=== PATIENT | female | born 1980 | race Caucasian/White ===

== ENCOUNTER 2016-07-29 09:29 | Day surgery (SDC) | payer OTHER ==
[~2016-07-29] VITALS: Ht 149.9 cm; Wt 91.8 kg
[2016-07-29] VITALS (11 sets, daily range): BP systolic 110–132; BP diastolic 58–78; PULSE 78–112; RESP 12–19; O2SAT 95–100
[~2016-07-29 09:29] MED LIST: ACET-171 PO; BUPR150T8 PO; CeFAZolin Inj 2 GM in IV Premix 1 EACH IV ONE; LEVO1TAB8 PO
[2016-07-29] MEDS ORDERED: fentaNYL-PF 50 mCg/mL 2 mL Inj ONE (09:30)
[2016-07-29] MEDS ORDERED: Dexamethasone 4 mg/mL Inj ONE (09:30)
[2016-07-29] MEDS ORDERED: Propofol 10,000 mCg/mL 20 mL Inj ONE (09:30)
[2016-07-29] MEDS ORDERED: MetoCLOpramide 5 mg/mL 2 mL Inj ONE (09:30)
[2016-07-29] MEDS ORDERED: Ondansetron 2 mg/mL 2 mL Inj ONE (09:30)
[2016-07-29] MEDS ORDERED: Lidocaine PF 1% 30 mL Inj ONE (09:30)
[2016-07-29] MEDS: Lactated Ringer's 1,000 ML IV SCH ×2 (10:07→11:01)
[2016-07-29] MEDS ORDERED: Lactated Ringer's 1,000 ML IV SCH (10:46)
[2016-07-29] MEDS ORDERED: Lactated Ringer's 500 ML IV PRN (10:46)
--- NOTE | 2016-07-29 10:46 | PCM.HPANE ---
Patient Data Date of Service: Jul 29, 2016 Surgeon Admitting Provider: Attending Provider:Michael Giron DPM Primary Care Physician:Man Yusuf DO Other Provider:Navarro Elliott Anesthesia Reason for Visit Right Ankle Instability, Right Foot Pain Ht/WT & BMI Height (Feet): 4 Height (Inches): 11.00 Weight (Kilograms): 91.8 Body Mass Index 40.00 Allergies Coded Allergies: hydrocodone (Verified Allergy, Severe, hives, 07/27/16) Wasp (Verified Allergy, Unknown, UNKNOWN, 07/27/16) ibuprofen (Verified Adverse Reaction, Severe, bloody emesis, 07/27/16) Past Anesthesia History Anesthesia History: Denies:: Anesthesia Reactions, Fam Anesthesia Reaction, Fam Malignant Hypertherm, Malignant Hyperthermia Diabetes History Hx Diabetes?: No MRSA MRSA: No Medications Hypertension Medication: No Home Meds Incl Beta Michael: No Reported Medications Bupropion ER (Wellbutrin SR)150 Mg Tablet.er150 Mg PO BID Ref 0 07/27/16 Acetaminophen 500 Mg [id number] Mg PO Q6H PRN For Pain 07/27/16 Levonorgestrel/Ethinyl Estradiol (Aviane)1 Each Tablet1 Tablet PO DAILY #1 PACK 07/27/16 Discontinued Reported Medications Bupropion ER (Wellbutrin XL)150 Mg Tab.er.35t264 Mg PO DAILY Ref 0 07/27/16 Vits W-Ca,Fe,FA(<1Mg) ( Vitamins)1 Each Tablet1 Each PO DAILY 04/24/14 Discontinued Scripts Clindamycin 300 Mg [id number] Mg PO QID 7 Days Ref 0 Prov:Georges Chen 03/11/15 Docusate Sodium (Colace)100 Mg Aziwvha699 Mg PO BID PRN For Constipation #60 CAPSULE Ref 0 Prov:Jessica Hodges DO 04/25/14 Ascorbate Calcium (Vitamin C)500 Mg [id number] Mg PO DAILY #90 TABLET Prov:Jessica Hodges DO 04/25/14 Ferrous Sulfate 325 Mg Jofgew752 Mg PO DAILY #90 TABLET Ref 0 Prov:Jessica Hodges DO 04/25/14 [Oxycodone/Acetaminophen] (Percocet 5-325)1 TAB TABLET No Conflict Check1-2 Tab PO Q4-6H PRN For Pain #30 TABLET Prov:Jessica Hodges DO 04/25/14 [Lanolin] (Lansinoh Ointment)14 APPLIC/7 GM OINT No Conflict Check1 Applic TOPICAL DIRECTED PRN for breast care #1 TUBE Prov:Jessica Hodges DO 04/25/14 History History of ENT Problems?: No HEENT History: Denies:: Abnormal Airway Cataracts Difficult Intubation Dysphagia Glaucoma Hearing Problem Sinus Problem TMJ Denture Type: None Teeth Condition: Missing Teeth Hx of Heart Problems?: No Cardiovascular History: Denies:: Chest Pain Congestive Heart Failure Hypertension Hx of Respiratory Problem?: No Respiratory History: Denies:: Dyspnea Tuberculosis Use of C-PAP Machine Hx Neurologic Problems?: No Neurological History: Denies:: CVA Seizures TIA Hx of GI Problems?: Yes Gastrointestinal History: Denies:: Gastroesphageal Reflux Other GI Pertinent History: S/P INGUINAL (INCARCERATED) HERNIA RPR Hx of Problems?: No Female Hx: Denies:: Currently Skin History: Denies:: History Skin Disorders? Pressure Ulcers Hx Musculoskeletal Problems?: Yes Musculoskeletal History: Positive for:: Musculoskeletal Trauma (RT ANKLE INSTABILITY/PAIN=CURRENT PROBLEM) Hx of Psycho/Social Problems?: No Hx Surgeries?: Yes (Hernia, x 2) Hx Any Other Health Problems?: Yes Other History: Denies:: Cancer Endocrine Disease Hospitalization Thyroid Disease Hx Diabetes: No Hx Alcohol Use: YesHx Substance Use: Yes (HX MARIJUANA ABUSE - last use 3-4 months ago - smoking it) Smoking Status: Current Every Day Smoker Have You Smoked inLast 12 mo: Yes (TRYING TO QUIT-STARTED WELLBUTRIN)Approx How Many Cigarettes/day: 1 Stop/Bang Treated for Sleep Apnea?: No Do You Have a CPAP Machine?: No S-Snoring: Do You Snore Loudly: No T-Tired: feel tired, fatigued: No O-Obsered: Observed not breath: No P-Blood Pressure: treated: No B- Body Mass Index > 35 kg/m2: Yes A- Age over 50: No N- Neck Large Circumference: No G- Gender Male: No LELE Total Score: 1 LELE Risk Assessment: Low Risk, <3 Yes Risk Assessment Category Category 1A: Patient has history of documented sleep apnea, and HAS NOT received any narcotic, sedative or anesthesia administration during this stay. Category 1B: Patient has history of documented sleep apnea, and HAS received any narcotic , sedative or anesthesia administration during this stay Category 2: Patient has SUSPECTED Obstructive Sleep Apnea, and HAS received any narcotic , sedative or anesthesia administration during this stay. Category 3: Patient has SUSPECTED Obstructive Sleep Apnea and HAS NOT received narcotic, sedative or anesthesia administration during this stay. Category 4: Outpatient in Procedural Areas with known sleep apnea or who screen positive for High Risk via the STOP/BANG questionnaire. Exam Exam Vital Signs Vital Signs Date Time Temp Pulse Resp B/P Pulse Ox O2 Delivery O2 Flow Rate FiO2 07/29/16 10:09 36.2 78 16 127/73 97 Room Air General Appearance: Alert, Oriented X3, Cooperative, No Acute Distress HEENT/AIRWAY: MP 3, Neck Movement (from), Mouth Opening (3), Other (TMD<3) Lungs: Diminished Heart: Exam Unremarkable, Regular Rate/Rhythm, Normal S1, Normal S2, No Murmurs /Rubs/Gallops Meds/Labs/Diagnostics Admission Meds Current Medications Lactated Ringer's (Lr) 1,000 ml @ 120 mls/hr Q8H20M IV Last administered on t 10:07; Start 07/29/16 at 05:00; Stop 07/29/16 at 13:19 Plan Impression Patient chart reviewed, patient interviewed and anesthestic plan with risks, benefits, and alternatives discussed, and informed consent obtained. ASA Physical Status: ASA2 Mod Systemic Disease Anesthetic Plan: GA Bene/Risks/Altern/Consents: Yes HP Complete Prior to Induction: Yes Jordan Jaeger MD Jul 29, 2016 10:46
[2016-07-29] MEDS ORDERED: Phenylephrine 10,000 mCg/mL Inj IVPUSH PRN (10:50)
[2016-07-29] MEDS ORDERED: Ondansetron 2 mg/mL 2 mL Inj IVPUSH PRN (10:50)
[2016-07-29] MEDS ORDERED: MetoCLOpramide 5 mg/mL 2 mL Inj IVPUSH PRN (10:50)
[2016-07-29] MEDS ORDERED: EPHEDrine Sulfate 50 mg/mL Inj IVPUSH PRN (10:50)
[2016-07-29] MEDS ORDERED: HYDROmorphone 1 mg/mL Inj IVPUSH PRN (10:50)
[2016-07-29] MEDS ORDERED: Dexamethasone 4 mg/mL Inj IVPUSH PRN (10:50)
[2016-07-29] MEDS ORDERED: fentaNYL-PF 50 mCg/mL 2 mL Inj IVPUSH PRN (10:50)
[2016-07-29] MEDS ORDERED: Bupivacaine-MPF 0.5% W/EPI 30 mL Inj INJ ONE (11:40)
[2016-07-29] MEDS ORDERED: oxyCODONE-Acetamin 5-325 mg Tablet PO PRN (13:10)
--- NOTE | 2016-08-05 08:05 | PCM.PODPO ---
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 Moderate to severe anterior capsulitis and synovitis Details of Procedure Patient was identified in the preoperative holding area. All preoperative comorbidities and allergies were identified and thoroughly discussed. The patient was transported into the operating room and placed on the operating room in normal supine position. General anesthesia was inducted by the anesthesia service. The patient was then prepped and draped in the normal aseptic technique. Attention was first paid to the anterior medial aspect of the right ankle. Following placement of an ankle distractor under mild distraction a spinal needle was introduced to the medial gutter of the right ankle joint. Approximately 20 mL of saline was then injected into the ankle to provide adequate distention. A stab incision was made surrounding the spinal needle with a #11 blade. Hemostat was introduced into the ankle joint. The cannula was then introduced into the medial aspect of the ankle joint and the camera was inserted in the normal fashion. Care was taken to avoid any injury to local neurovascular structures. Similar procedure was performed to allow access to the lateral aspect of the ankle joint with the introduction of a shaving tool. Access was gained to the anterior aspect of the ankle joint. Inspection revealed limited destruction of articular cartilage within the majority of the tibiotalar articular surface however mild wear was noted anteriorly on the tibia and talus. A large loose body was also noted encapsulated in soft tissue and was removed from the anterior aspect of the ankle. Extensive soft tissue debridement was performed of the anterior aspect of the ankle capsule as well as the medial and lateral gutter to remove soft tissue debris and a significant amount of synovial tissue. Care was taken to avoid any damage to the articular cartilage. Attention was then paid to the lateral aspect of the ankle the stab incision was carried distally in a semi- elliptical fashion overlying the distal aspect of the fibula. Blunt dissection was performed utilizing a Metzenbaum scissor through the subcutaneous tissue and a mild amount of adipose tissue was removed from this area. The anterior talofibular ligament was identified and transected centrally with a #15 blade. Approximately 2 mm of the anterior talofibular ligament was excised. Access was gained into the anterior aspect of the ankle joint so that the exostosis on the proximal aspect of the talar neck could be debrided with a rongeur. A rasp was then utilized to smooth down this area again care was taken to avoid any damage to the articular surface. 2 #2.4 mm suture tacks were then inserted into the distal aspect of the fibula in the area of the anterior talofibular and calcaneofibular ligament. A modified Viktor from was then performed utilizing the extensor retinaculum to reinforce the lateral ankle ligaments. The ankle was then placed through range of motion and no instability was noted. This wound was ankle was a flush with large amounts of normal saline. Deep closure was performed utilizing number 3. 0 Vicryl and skin closure was performed utilizing number 3. 0 Prolene. No complications occurred during this case. The wounds were then dressed with Adaptic sterile 4 x 4 gauze and a mildly compressive Tena compression dressing with a posterior splint was placed. The patient was awoken by anesthesia and transported out of the operating room. Grafts, Implants: Implants-See Implant Record Complications There were no periprocedural complications identified. Condition Stable Anesthetic Administered: GA Catheters: None Output, Estimated Blood Loss: 30 Blood Admin during surgery: No Surgical Cast or Splint: Post-op Boot Surgical Specimen Removed: No Specimen sent to Pathology: No Post Operative Plan Ice and elevate right lower extremity Nonweightbearing right lower extremity Keep dressing clean dry and intact Follow-up in 1 week Michael Giron DPM Aug 05, 2016 08:05
== END 2016-07-29 23:59 | disposition home or self-care (01) ==
LOC: SAS 09:29
PROVIDERS: ATTEND Podiatrist Foot & Ankle Surgery
DX: M25.371 Other instability, right ankle (principal); M24.071 Loose body in right ankle; M19.171 Post-traumatic osteoarthritis, right ankle and foot; M89.9 Disorder of bone, unspecified; M79.671 Pain in right foot; W10.8XXD Fall (on) (from) other stairs and steps, subsequent encounter; Y92.9 Unspecified place or not applicable; F12.90 Cannabis use, unspecified, uncomplicated; F17.210 Nicotine dependence, cigarettes, uncomplicated; E66.01 Morbid (severe) obesity due to excess calories; Z68.41 Body mass index [BMI] 40.0-44.9, adult
CPT/HCPCS: 27698; 29897; C1713; J0171; J0690; J1100; J1170; J2250; J2405; J2765; J3010; J7120

== ENCOUNTER 2016-08-01 16:28 | Emergency (ER) | payer OTHER ==
[~2016-08-01] VITALS: Ht 149.9 cm; Wt 90.9 kg
[~2016-08-01 16:28] MED LIST changes: -CeFAZolin Inj 2 GM in IV Premix 1 EACH IV ONE
[2016-08-01 16:40] VITALS: BP 117/85; PULSE 101; RESP 16; O2SAT 98
[2016-08-01 18:25] VITALS: BP 122/87; PULSE 95; RESP 16; O2SAT 98
--- NOTE | 2016-08-01 19:10 | ED.REPORT ---
HPI-Extremity Problem Lower Date of Service Aug 01, 2016 ED Provider: Frederic Curtis MD Pt is a 35 y/o female presenting to the ED c/o right calf pain onset today. The patient had a right ankle stabilization and arthroscopic debridement performed [address] Giron for ankle instability and today has been experiencing calf cramping and spasms. The patient called his office today and he told her to come to the ED. Pt denies fever, chills, nausea, vomiting, CP, SOB. Nursing Notes Stated Complaint: RIGHT LEG SPASMS POST SURGERY Chief Complaint: Extremity Trauma Nursing Notes Reviewed: Yes Allergies: Coded Allergies: hydrocodone (Verified Allergy, Severe, hives, 07/27/16) Wasp (Verified Allergy, Unknown, UNKNOWN, 07/27/16) ibuprofen (Verified Adverse Reaction, Severe, bloody emesis, 07/27/16) Scheduled Bupropion ER (Wellbutrin SR) 150 Mg Tablet.er 150 MG PO BID Levonorgestrel/Ethinyl Estradiol (Aviane) 1 Each Tablet 1 TABLET PO DAILY Scheduled PRN Acetaminophen (Acetaminophen) 500 Mg Tablet 500 MG PO Q6H PRN PRN For Pain General Time Seen by MD: 18:35 Chief Complaint Other (RLE pain) Hx Obtained From: Patient Arrived By: Walk-in Onset Occurred: 5 - 8 hours ago Symptom Duration: Since onset Location: : Leg right Quality: Painful Severity: Current: Moderate Severity: Maximum: Moderate Recent Healthcare: Recent doctor visit, Previous surgery Similar Sx Previous: No Past Medical History Past Medical History Healthy Past Surgical History Right ankle stabilization and arthroscopic debridement Reports: Smoking History Current Every Day Smoker Ambulatory Status Independent Review of Systems Constitutional: Denies: Chills, Fever Musculoskeletal: Reports: Extremity pain Complete sys rev & neg: except as marked. Respiratory: Denies: Shortness of breath Cardiovascular: Denies: Chest pain GI: Denies: Nausea, Vomiting Physical Exam Initial Vital Signs Vital Signs (First) Date Time Temp Pulse Resp B/P Pulse Ox O2 Delivery O2 Flow Rate FiO2 08/01/16 16:40 36.7 101 16 117/85 98 Room Air Initial VS: Reviewed, Vital signs abnormal Head / Eyes: Atraumatic, Normocephalic, PERRL ENT: Mucous membranes moist, Conjunctiva normal, No scleral icterus Neck: Supple, Full range of motion Respiratory: Breath sounds normal, Clear to auscultation, No respiratory distress Cardiovascular: Regular rate & rhythm, Heart sounds normal, Intact distal pulses Abdomen / GI: Soft, No distention Upper Extremities: Vascular intact, Neuro intact, No swelling Skin: Warm, Dry, No cyanosis Neurologic: Alert, Oriented, Nonfocal Psychiatric: Mood/affect normal, Behavior normal, Normal thought content Lower Extremity / Pelvis / MS: Atraumatic, Full range of motion, No deformity, Neurologic intact, Vascular intact, No compartment syndrome Bandages were removed No calf redness or swelling Ankle / Foot: Atraumatic, Full range of motion, No deformity, Neurologic intact , Vascular intact, No compartment syndrome The bandages were removed. Incisions over medial and lateral right ankle without surrounding erythema or signs of infection General/Constitutional: Awake, Alert, No acute distress, Well appearing, Cooperative, Not toxic appearing Interpretation & Diagnostics Interpretation & Diagnostics: US RLE: Negative for DVT Re-Eval/Medical Decision Med Decision/Clinical Course 35-year-old female with recent podiatry surgery on right ankle ligament repair presenting with right calf pain. Her surgery was late last week. She reports Cramping for the last couple days. Right lower extremity ultrasound shows no DVT. Her wrap was replaced and she felt much better. There is no evidence of infection. She will follow up with podiatry. Re-Evaluation/Progress : Time of Eval: 20:56 Re-Evaluation/Progress Note: Pt rechecked. Informed pt of plan for treatment. Pt understands and agrees with plan for treatment. F/U instructions and RTER warnings given. All questions addressed. Counseled Regarding: Diagnosis, Lab results, Need for follow-up, When/why to return to ED Discharge & Departure Impression: Primary Impression: Postoperative pain Additional Impressions: Right leg pain Right leg swelling Disposition: Home Discharge Condition All VS Reviewed: Yes Condition: Stable Additional Instructions: The ultrasound showed no blood clot and there is no sign of infection. Follow-up with the surgeon as scheduled. Return to the emergency department for uncontrollable pain, high fever, redness or swelling, or for other concerning symptoms. Referrals: Man Yusuf DO (PCP) Scribe Attestation Portions of this note were transcribed by Obed Salgado. I, Dr. Curtis, personally performed the history, physical exam and medical decision-making; I reviewed and confirmed the accuracy of the information in the transcribed note. Signed by Ru Cárdenas, 08/01/16 - 1929 copies to: Man Yusuf Ben M MD Aug 01, 2016 19:10 OBED SALGADO Aug 01, 2016 19:17
--- NOTE | 2016-08-01 21:03 | DRSVH ---
PROCEDURE: US VEINOUS LEG DUPLEX UNILATERAL, RIGHT INDICATIONS: RLE swelling post op r/o DVT TECHNIQUE: Real-time imaging, as well as color and pulse Doppler interrogation, were performed of the lower extr emity deep veins from the inguinal ligament to the popliteal fossa. COMPARISON: None. FINDINGS: The deep veins are normally compressible, and free of intraluminal thrombus. Color and pu lse Doppler demonstrate normal phasic intraluminal flow. There is normal augmentation response to di stal compression maneuver. IMPRESSION: No evidence of deep venous thrombosis. Dictated by: Marcie Rivera M.D. on 08/01/2016 at 21:01 Approved by: Marcie Rivera M.D. on 08/01/2016 at 21:01
[2016-08-01 21:22] VITALS: BP 121/88; PULSE 84; RESP 16; O2SAT 98
== END 2016-08-01 21:21 | disposition home or self-care (01) ==
LOC: SED 16:28
DX: G89.18 Other acute postprocedural pain (principal); M79.661 Pain in right lower leg; M79.89 Other specified soft tissue disorders; F17.200 Nicotine dependence, unspecified, uncomplicated; Z88.5 Allergy status to narcotic agent; Z88.8 Allergy status to other drugs, medicaments and biological substances; Z91.038 Other insect allergy status